=== PATIENT | female | born 1940 | race Caucasian/White ===

== ENCOUNTER → 2018-10-13 | Emergency (ER) | payer MEDICARE, MEDICAID ==
[~2018-10-13] VITALS: Ht 152.4 cm; Wt 55.0 kg
[~2018-10-13] MED LIST: CEPH500C5 PO; cephalexin 250mg capsule PO ONE; dexamethasone sod phosphate 10mg/ml inj IV STA; normal saline 1000ML IV soln IV ONE; normal saline 1000ML IV soln IVB ONE
[2018-10-13 11:04] LABS: BASOPHILS # (AUTO) 0.1 X10'3 (0-0.2); BASOPHILS % (AUTO) 0.9 % (0-1); EOSINOPHILS # (AUTO) 0.2 X10'3 (0-0.9); EOSINOPHILS % (AUTO) 2.3 % (0-6); HEMATOCRIT 24.9 % (35.0-45.0); HEMOGLOBIN 7.8 g/dl (12.0-16.0); LYMPHOCYTES # (AUTO) 0.7 X10'3 (1.1-4.8); LYMPHOCYTES % (AUTO) 10.5 % (21-51); MEAN CORPUSCULAR HEMOGLOBIN 25.9 PG (27.0-31.0); MEAN CORPUSCULAR HGB CONC 31.3 % (33.0-36.5); MEAN CORPUSCULAR VOLUME 82.7 FL (78-98); MEAN PLATELET VOLUME 7.3 FL (7.4-10.4); MONOCYTES # (AUTO) 0.2 X10'3 (0-0.9); MONOCYTES % (AUTO) 3.5 % (2-12); NEUTROPHILS # (AUTO) 5.6 X10'3 (1.8-7.7); NEUTROPHILS % (AUTO) 82.8 % (42-75); PLATELET COUNT 476 X10'3 (140-440); RED BLOOD COUNT 3.01 X10'6 (4.20-5.60); WHITE BLOOD COUNT 6.9 X10'3 (4.5-11.0)
[2018-10-13 11:17] LABS: ALANINE AMINOTRANSFERASE 32 U/L (12-78); ALBUMIN/GLOBULIN RATIO 0.8 (1.1-1.5); ALKALINE PHOSPHATASE 87 IU/L (46-116); ANION GAP 8 (8-16); ASPARTATE AMINO TRANSFERASE 48 U/L (10-37); BILIRUBIN,TOTAL 0.3 MG/DL (0.1-1.0); BLOOD UREA NITROGEN 17 MG/DL (7-18); BUN/CREATININE RATIO 23.6 (6.6-38.0); CALCIUM 8.4 MG/DL (8.5-10.1); CHLORIDE 103 MMOL/L (99-107); CREATININE 0.72 MG/DL (0.40-0.90); MAGNESIUM 2.1 MG/DL (1.5-2.4); SODIUM 137 MMOL/L (135-145); TOTAL CARBON DIOXIDE 26.3 MMOL/L (24-32); TOTAL PROTEIN 6.9 G/DL (6.4-8.2); eGFR 78 ML/MIN
[2018-10-13 11:21] LABS: GLUCOSE 107 MG/DL (70-104); POTASSIUM 4.6 MMOL/L (3.5-5.1)
[2018-10-13 11:49] LABS: PROTHROMBIN TIME 10.1 SECONDS (9.0-12.0)
[2018-10-13 12:16] VITALS: BP 161/73
[2018-10-13 12:45] LABS: CLARITY,URINE SLIGHTLY CLOUDY (Clear); COLOR,URINE STRAW (Yellow); GLUCOSE, URINE NEGATIVE (Neg); KETONES,URINE NEGATIVE (Neg); LEUKOCYTE ESTERASE ,URINE TRACE (Neg); NITRITES, URINE NEGATIVE (Neg); OCCULT BLOOD,URINE SMALL (Neg); PROTEIN,URINE NEGATIVE (Neg); UA COLLECTION TYPE OTHER; UROBILINOGEN,URINE 0.2 E.U/dL (0.2-1.0)
[2018-10-13 12:54] LABS: SQUAMOUS EPITHELIAL CELL,UR FEW /LPF (FEW)
[2018-10-13 12:55] LABS: BACTERIA,URINE 1+ /HPF (Neg); RBC,URINE 0-2 /HPF (0-2); WBC,URINE 0-4 /HPF (0-4)
[2018-10-13 12:58] LABS: C-REACTIVE PROTEIN 1.57 MG/DL (0.0-0.5)
--- NOTE | 2018-10-13 14:05 | NUR ---
arnoldo DESAI [phone]
== END | disposition home or self-care (01) ==
LOC: ER 10:18
DX: D64.9 Anemia, unspecified (principal); R21 Rash and other nonspecific skin eruption; N39.0 Urinary tract infection, site not specified; M19.90 Unspecified osteoarthritis, unspecified site; Z88.6 Allergy status to analgesic agent; Z88.2 Allergy status to sulfonamides; Z88.1 Allergy status to other antibiotic agents; Z88.8 Allergy status to other drugs, medicaments and biological substances
CPT/HCPCS: 36415; 71045; 80053; 81001; 83605; 83735; 84145; 85025; 85610; 85651; 86140; 87040; 87077; 87088; 87186; 87502; 87503; 96374; 99284; J1100; J7030

== ENCOUNTER 2019-05-05 15:43 | Emergency (ER) | payer MEDICARE, MEDICAID ==
[~2019-05-05] VITALS: Ht 152.4 cm; Wt 52.0 kg
[~2019-05-05 15:43] MED LIST changes: -cephalexin 250mg capsule PO ONE; -dexamethasone sod phosphate 10mg/ml inj IV STA; -normal saline 1000ML IV soln IV ONE; -normal saline 1000ML IV soln IVB ONE
[2019-05-05 18:00] LABS: BASOPHILS % (AUTO) 0.8 % (0-1); EOSINOPHILS # (AUTO) 0.2 X10'3 (0-0.9); EOSINOPHILS % (AUTO) 3.4 % (0-6); HEMATOCRIT 32.4 % (35.0-45.0); HEMOGLOBIN 10.9 g/dl (12.0-16.0); LYMPHOCYTES # (AUTO) 1.1 X10'3 (1.1-4.8); LYMPHOCYTES % (AUTO) 21.4 % (21-51); MEAN CORPUSCULAR HGB CONC 33.6 g/dL (33.0-36.5); MEAN CORPUSCULAR VOLUME 95.2 FL (78-98); MEAN PLATELET VOLUME 6.4 FL (7.4-10.4); MONOCYTES # (AUTO) 0.4 X10'3 (0-0.9); MONOCYTES % (AUTO) 8.4 % (2-12); NEUTROPHILS # (AUTO) 3.5 X10'3 (1.8-7.7); PLATELET COUNT 302 X10'3 (140-440); WHITE BLOOD COUNT 5.3 X10'3 (4.5-11.0)
[2019-05-05 18:13] LABS: PARTIAL THROMBOPLASTIN TIME 25 SECONDS (22-32)
[2019-05-05 18:14] LABS: ALANINE AMINOTRANSFERASE 24 U/L (12-78); ALBUMIN 3.3 G/DL (3.4-5.0); ALBUMIN/GLOBULIN RATIO 0.9 (1.1-1.5); ALKALINE PHOSPHATASE 92 IU/L (46-116); ANION GAP 5 (8-16); ASPARTATE AMINO TRANSFERASE 22 U/L (10-37); BILIRUBIN,TOTAL 0.3 MG/DL (0.1-1.0); BLOOD UREA NITROGEN 18 MG/DL (7-18); BUN/CREATININE RATIO 23.1 (6.6-38.0); CALCIUM 8.9 MG/DL (8.5-10.1); CHLORIDE 106 MMOL/L (99-107); CREATININE 0.78 MG/DL (0.40-0.90); POTASSIUM 4.2 MMOL/L (3.5-5.1); SODIUM 140 MMOL/L (135-145); TOTAL CARBON DIOXIDE 29.4 MMOL/L (24-32); TOTAL PROTEIN 6.9 G/DL (6.4-8.2); eGFR 71 ML/MIN
[2019-05-05 18:15] LABS: GLUCOSE 96 MG/DL (70-104)
--- NOTE | 2019-05-05 21:05 | NUR ---
PT WAS DC'D, FELL ON HER WAY OUT OF LOBBY. HIT HEAD & ON THINNERS. NOW LEVEL 2 TRAUMA. ### THIS IS THE DC ASSESSMENT THAT WAS BEING COMPLETED WHEN FALL OCCURRED: BILATERAL LL RASH NOTED, BUT NOT EDEMA. VASCULAR US PERFORMED; EDMD REVIEWED. PT AMBULATED ON HER OWN FROM ED WITH BELONGINGS AFTER VERBALIZING UNDERSTANDING OF DC POC INCLUDING IMPORTANCE OF PCP F/U. LIST OF PROVIDERS GIVE TO PT EVEN THOUGH PT INDICVATES SHE HAS A PROVIDER @ [facility].
--- NOTE | 2019-05-05 21:41 | NUR ---
pt removed c-collar; refusing to wear. pt states, "it hurts more with it on than off." lisandro dukes notified.
--- NOTE | 2019-05-05 21:51 | NUR ---
EC: edmd not so, Addendum: 05/05/19 at 2151 by RSTENATALIE edmd not sommers. sylvie ng notified of pt's c-collar removal an refusal to continue wearing.
--- NOTE | 2019-05-05 22:00 | NUR ---
Per MANUEL ng, ct clear. trauma called off
[2019-05-05 23:18] VITALS: BP 138/86
== END 2019-05-05 23:35 | disposition home or self-care (01) ==
LOC: ER 15:44
DX: R60.0 Localized edema (principal); M79.605 Pain in left leg; R51 Headache; M19.90 Unspecified osteoarthritis, unspecified site; I50.9 Heart failure, unspecified; Z86.718 Personal history of other venous thrombosis and embolism; M47.9 Spondylosis, unspecified; Z98.890 Other specified postprocedural states; Z88.2 Allergy status to sulfonamides; Z88.5 Allergy status to narcotic agent; Z88.1 Allergy status to other antibiotic agents; Z88.8 Allergy status to other drugs, medicaments and biological substances; Z79.899 Other long term (current) drug therapy; Z79.01 Long term (current) use of anticoagulants; W01.198A Fall on same level from slipping, tripping and stumbling with subsequent striking against other object, initial encounter; Y93.01 Activity, walking, marching and hiking; Y92.232 Corridor of hospital as the place of occurrence of the external cause; Z98.1 Arthrodesis status
CPT/HCPCS: 36415; 70450; 72125; 80053; 85025; 85610; 85730; 93971; 99284

== ENCOUNTER 2020-02-15 11:30 | Emergency (ER) | payer MEDICARE, MEDICAID ==
[~2020-02-15] VITALS: Ht 152.4 cm; Wt 54.5 kg
[2020-02-15] MEDS ORDERED: CefTRIAXone/D5W-Rocephin 1gm 50 ML IV SCH (13:05)
[2020-02-15] MEDS ORDERED: naloxone 0.4 mg/ml inj IV ONE (13:10)
[2020-02-15 13:14] LABS: BASOPHILS % (AUTO) 0.2 % (0-1); EOSINOPHILS % (AUTO) 0.1 % (0-6); HEMATOCRIT 30.4 % (35.0-45.0); HEMOGLOBIN 9.7 g/dl (12.0-16.0); LYMPHOCYTES # (AUTO) 0.8 X10'3 (1.1-4.8); LYMPHOCYTES % (AUTO) 8.6 % (21-51); MEAN CORPUSCULAR HEMOGLOBIN 27.3 PG (27.0-31.0); MEAN CORPUSCULAR VOLUME 85.3 FL (78-98); MEAN PLATELET VOLUME 7.2 FL (7.4-10.4); MONOCYTES # (AUTO) 0.7 X10'3 (0-0.9); MONOCYTES % (AUTO) 8.3 % (2-12); NEUTROPHILS # (AUTO) 7.4 X10'3 (1.8-7.7); NEUTROPHILS % (AUTO) 82.8 % (42-75); PLATELET COUNT 316 X10'3 (140-440); RED BLOOD COUNT 3.56 X10'6 (4.20-5.60); RED CELL DISTRIBUTION WIDTH 16.1 % (11.5-14.5)
[2020-02-15 13:28] LABS: ALANINE AMINOTRANSFERASE 17 U/L (12-78); ALBUMIN 3.1 G/DL (3.4-5.0); ALBUMIN/GLOBULIN RATIO 0.8 (1.1-1.5); ALKALINE PHOSPHATASE 74 IU/L (46-116); ANION GAP 8 (8-16); ASPARTATE AMINO TRANSFERASE 27 U/L (10-37); BILIRUBIN,TOTAL 0.5 MG/DL (0.1-1.0); BLOOD UREA NITROGEN 51 MG/DL (7-18); BUN/CREATININE RATIO 22.9 (6.6-38.0); CALCIUM 9.1 MG/DL (8.5-10.1); CHLORIDE 102 MMOL/L (99-107); CREATININE 2.23 MG/DL (0.40-0.90); GLUCOSE 109 MG/DL (70-104); MAGNESIUM 2.5 MG/DL (1.5-2.4); POTASSIUM 5.4 MMOL/L (3.5-5.1); SODIUM 137 MMOL/L (135-145); TOTAL CARBON DIOXIDE 27.3 MMOL/L (24-32); TOTAL PROTEIN 7.1 G/DL (6.4-8.2); eGFR 21 ML/MIN
[2020-02-15 13:56] LABS: ABG BASE EXCESS -3.9 mmol/L (-2.0-3.0); ABG OXYGEN SATURATION 78.6 % (95-98); ABG PCO2 (T) 58.1 mmHg (35.0-45.0); ABG PH (T) 7.233 (7.350-7.450); ALLEN'S TEST POSITIVE; FCOHb 0.9 % (0.5-1.5); FLOW 2 L/min; FMetHb 0.1 % (0.3-1.12); FO2Hb 77.8 % (94-100); TOTAL HEMOGLOBIN 10.2 G/dl (12.0-16.0)
[2020-02-15] MEDS ORDERED: NALO4SPR BOTHNARES (14:17)
--- NOTE | 2020-02-15 14:58 | NUR ---
Pt completely A&Ox4. Pt states that she needs to use the restroom. Tech walked pt to the restroom and pt ambulated without difficulty.
[2020-02-15] MEDS ORDERED: ketorolac tromethamine 15mg/ml inj. IV ONE (15:05)
--- NOTE | 2020-02-15 15:16 | NUR ---
spoke with pt's daughter to advise pt is ready for d/c, daughter will be here for picker box operator by 1600
[2020-02-15 16:27] VITALS: BP 142/97
== END 2020-02-15 16:32 | disposition home or self-care (01) ==
LOC: ER 11:31
DX: R40.0 Somnolence (principal); T40.2X5A Adverse effect of other opioids, initial encounter; I48.91 Unspecified atrial fibrillation; I11.0 Hypertensive heart disease with heart failure; I50.9 Heart failure, unspecified; J44.9 Chronic obstructive pulmonary disease, unspecified; M19.90 Unspecified osteoarthritis, unspecified site; Z87.01 Personal history of pneumonia (recurrent); Z98.890 Other specified postprocedural states; Z88.2 Allergy status to sulfonamides; Z88.6 Allergy status to analgesic agent; Z88.1 Allergy status to other antibiotic agents; Z88.8 Allergy status to other drugs, medicaments and biological substances; Y92.89 Other specified places as the place of occurrence of the external cause
CPT/HCPCS: 36415; 36600; 71045; 80053; 82803; 83605; 83735; 84145; 85018; 85025; 85610; 87040; 93005; 96365; 96375; 99285; J0696; J2310

== ENCOUNTER 2021-08-20 09:56 | Emergency (ER) | payer MEDICARE, MEDICAID ==
[~2021-08-20] VITALS: Ht 157.5 cm; Wt 72.7 kg
[~2021-08-20 09:56] MED LIST changes: -CEPH500C5 PO; +NALO4SPR BOTHNARES
[2021-08-20] MEDS ORDERED: oxyCODONE/APAP 10/325mg tablet PO ONE (11:20)
[2021-08-20] MEDS ORDERED: ondansetron 4mg rapidly disintigrating tab PO ONE (11:20)
[2021-08-20] MEDS ORDERED: CASIRIVIMAB/IMDEVIMAB inject. 10 ML in normal saline 100ml IV soln 100 ML IV ONE (11:20)
[2021-08-20 11:21] LABS: BASOPHILS % (AUTO) 0.3 % (0-1); EOSINOPHILS % (AUTO) 0 % (0-6); HEMATOCRIT 38.6 % (35.0-45.0); HEMOGLOBIN 12.9 g/dl (12.0-16.0); LYMPHOCYTES # (AUTO) 0.4 X10'3 (1.1-4.8); LYMPHOCYTES % (AUTO) 5.7 % (21-51); MEAN CORPUSCULAR HEMOGLOBIN 29.9 PG (27.0-31.0); MEAN CORPUSCULAR HGB CONC 33.3 g/dL (33.0-36.5); MEAN CORPUSCULAR VOLUME 89.8 FL (78-98); MEAN PLATELET VOLUME 7.7 FL (7.4-10.4); MONOCYTES # (AUTO) 0.3 X10'3 (0-0.9); MONOCYTES % (AUTO) 3.3 % (2-12); NEUTROPHILS # (AUTO) 6.9 X10'3 (1.8-7.7); NEUTROPHILS % (AUTO) 90.7 % (42-75); PLATELET COUNT 260 X10'3 (140-440); RED CELL DISTRIBUTION WIDTH 15.8 % (11.5-14.5); WHITE BLOOD COUNT 7.6 X10'3 (4.5-11.0)
[2021-08-20 11:36] LABS: D-DIMER 1.47 MG/L FEU (0-0.50)
[2021-08-20 11:37] LABS: ALANINE AMINOTRANSFERASE 24 U/L (12-78); ALBUMIN 2.8 G/DL (3.4-5.0); ALBUMIN/GLOBULIN RATIO 0.6 (1.1-1.5); ALKALINE PHOSPHATASE 59 IU/L (46-116); ANION GAP 8 (8-16); ASPARTATE AMINO TRANSFERASE 49 U/L (10-37); BILIRUBIN,TOTAL 0.4 MG/DL (0.1-1.0); BLOOD UREA NITROGEN 21 MG/DL (7-18); CALCIUM 8.5 MG/DL (8.5-10.1); CHLORIDE 101 MMOL/L (99-107); GLUCOSE 168 MG/DL (70-104); MAGNESIUM 1.8 MG/DL (1.5-2.4); POTASSIUM 3.6 MMOL/L (3.5-5.1); SODIUM 136 MMOL/L (135-145); TOTAL CARBON DIOXIDE 27.2 MMOL/L (24-32); TOTAL PROTEIN 7.8 G/DL (6.4-8.2); eGFR 53 ML/MIN
[2021-08-20] MEDS ORDERED: HYDR-3972 PO (13:17)
[2021-08-20] MEDS ORDERED: POTA8TAB69 PO (13:17)
[2021-08-20] MEDS ORDERED: UMEC1DIS INH (13:17)
[2021-08-20] MEDS ORDERED: APIX2.5T PO (13:17)
[2021-08-20] MEDS ORDERED: OMEP-50 PO (13:17)
[2021-08-20] MEDS ORDERED: MORP-92 PO (13:17)
[2021-08-20] MEDS ORDERED: CARV-50 PO (13:17)
[2021-08-20] MEDS ORDERED: FERR325T7 PO (13:17)
[2021-08-20] MEDS ORDERED: FLUT12AE9 INH (13:17)
[2021-08-20] MEDS ORDERED: GABA300C PO (13:17)
[2021-08-20] MEDS ORDERED: BECL10.62 IH (13:17)
[2021-08-20] MEDS ORDERED: IPRA4AER IH (13:17)
[2021-08-20] MEDS ORDERED: PANT20TA18 PO (13:17)
[2021-08-20] MEDS ORDERED: ERGO500093 PO (13:17)
[2021-08-20] MEDS ORDERED: FURO20TA4 PO (13:17)
[2021-08-20] MEDS ORDERED: SERT-433 PO (13:17)
[2021-08-20 13:34] VITALS: BP 152/64
== END 2021-08-20 14:49 | disposition home or self-care (01) ==
LOC: ER 09:57
DX: U07.1 COVID-19 (principal); J44.9 Chronic obstructive pulmonary disease, unspecified; R50.9 Fever, unspecified; R05.9 Cough, unspecified; R11.2 Nausea with vomiting, unspecified; R53.1 Weakness; R51.9 Headache, unspecified; I48.91 Unspecified atrial fibrillation; I11.0 Hypertensive heart disease with heart failure; I50.9 Heart failure, unspecified; M19.90 Unspecified osteoarthritis, unspecified site; Z87.01 Personal history of pneumonia (recurrent); Z98.890 Other specified postprocedural states; Z88.2 Allergy status to sulfonamides; Z88.8 Allergy status to other drugs, medicaments and biological substances; Z88.5 Allergy status to narcotic agent; Z88.1 Allergy status to other antibiotic agents; Z79.899 Other long term (current) drug therapy
CPT/HCPCS: 36415; 71045; 80053; 83735; 83880; 84484; 85025; 85379; 85610; 87635; 93005; 99285; C9803; M0243; Q0244